=== PATIENT | female | born 1960 | race Caucasian/White ===

== ENCOUNTER 2019-12-26 12:33 | Outpatient (CLI) | payer OTHER, SELFPAY ==
--- NOTE | ~2019-12-26 | DEXA_ITS ---
Bone Density Report Name: Krystal Bowser Age: 59 Sex: Female Ethnicity: White Date of : 1960 Indication: postmenopausal; parental hip fracture; prior fracture; Referring Provider: Russell Flowers Study: Bone densitometry was performed. Exam Date: December 26, 2019 Accession number: [id number] Bone Density: Region BMD T-score Z-score Classification AP Spine (L1-L4) 0.983 -0.6 0.7 Normal Femoral Neck (Left) 0.652 -1.8 -0.6 Osteopenia Total Hip (Left) 0.872 -0.6 0.2 Normal Total Hip Bilateral Avg 0.865 -0.7 0.2 Normal Femoral Neck (Right) 0.656 -1.7 -0.6 Osteopenia Total Hip (Right) 0.857 -0.7 0.1 Normal World Health Organization criteria for BMD impression classify patients as: Normal (T-score at or above -1.0), Osteopenia (T-score between -1.0 and -2.5), or Osteoporosis (T-score at or below -2.5). 10-year Fracture Risk(1): Major Osteoporotic Fracture 23% Hip Fracture 2.5% Reported Risk Factors: [place] (), Neck BMD=0.656, BMI=20.8, previous fracture, parental fracture, smoking (1) FRAX(R) Version 3.08. Fracture probability calculated for an untreated patient. Fracture probability may be lower if the patient has received treatment. Clinical Information Provided by Patient: Has had a low trauma fracture Parent has had a hip fracture Smokes Has used the following medications: Vitamin D, Calcium Menopause Age: 49 Drinks caffeinated beverages Onset of menses at age 20 Number of children 0 Impression: The patient has low bone mass, based on the Left Femoral Neck T-score. The patient has an estimated ten-year risk of hip fracture of 2.5% and an estimated ten-year risk of major fracture of 23%, based on the WHO FRAX algorithm. The patient has risk factors, including: parental hip fracture, smoking, previous fracture. Discussion: BONE DENSITY IS LOW AT ONE OR MORE SKELETAL SITES. THE PATIENT'S BMD AND CLINICAL RISK FACTORS CONTRIBUTE TO THIS PATIENT'S INCREASED RISK OF FRACTURE. This patient's lowest T-score is low at one or more skeletal sites. It meets the World Health Organization's (WHO) criteria for ?low bone mass? (T-score between -1.0 and -2.5). The patient's 10-year risk of a major osteoporotic fracture as calculated by FRAX exceeds the threshold where pharmacological therapy is recommended by the National Osteoporosis Foundation (NOF). However, all treatment decisions require clinical judgment and consideration of individual patient factors, including patient preferences, comorbidities, previous drug use, risk factors not captured in the FRAX model (e.g., frailty, falls, vitamin D deficiency, increased bone turnover, interval significant decline in bone density) and possible under or overestimation of fracture risk by FRAX. The patient should follow a healthful lifestyle (good nu
== END 2019-12-26 12:34 | disposition home or self-care (01) ==
LOC: ANHIMG 12:34
PROVIDERS: PCP Internal Medicine Endocrinology, Diabetes & Metabolism; Visit Provider Obstetrics & Gynecology
DX: M84.40XA Pathological fracture, unspecified site, initial encounter for fracture (principal); M85.89 Other specified disorders of bone density and structure, multiple sites
CPT/HCPCS: 77080

== ENCOUNTER 2022-01-22 09:48 | Outpatient (CLI) | payer OTHER, SELFPAY ==
--- NOTE | ~2022-01-22 | MM_ITS ---
EXAMINATION: MM screening frederic BI w chepe HISTORY: Screening TECHNIQUE: Craniocaudal and mediolateral oblique 3-D tomosynthesis images were obtained and synthetic 2-D images were generated. CAD analysis was submitted and interpreted. COMPARISON: Comparison to multiple prior studies sequentially, with oldest reviewed study dated 08/2012. BREAST PARENCHYMAL COMPOSITION: The breasts are heterogeneously dense, which may obscure small masses FINDINGS: There is no evidence of suspicious mass, calcification, or architectural distortion to sugg est malignancy in either breast. There has been no suspicious interval change. IMPRESSION: 1. No mammographic evidence of malignancy. 2. Recommend routine screening mammography in one year. BI-RADS Category 1: Negative Reviewed, dictated and finalized at location A.
== END 2022-01-22 09:49 | disposition home or self-care (01) ==
PROVIDERS: PCP Nurse Practitioner Family; Visit Provider Nurse Practitioner Family
DX: Z12.31 Encounter for screening mammogram for malignant neoplasm of breast (principal)
CPT/HCPCS: 77063; 77067

== ENCOUNTER 2024-01-12 09:41 | Outpatient (CLI) | payer OTHER, SELFPAY ==
--- NOTE | ~2024-01-12 | MM_ITS ---
EXAMINATION: MM screening frederic BI w chepe HISTORY: Screening TECHNIQUE: Craniocaudal and mediolateral oblique 3-D tomosynthesis images were obtained and synthetic 2-D images were generated. CAD analysis was submitted and interpreted. COMPARISON: Comparison to multiple prior studies sequentially, with oldest reviewed study dated 10/22. BREAST PARENCHYMAL COMPOSITION: Dense: The breasts are heterogeneously dense, which may obscure small masses FINDINGS: There is no evidence of suspicious mass, calcification, or architectural distortion to sugg est malignancy in either breast. There has been no suspicious interval change. IMPRESSION: 1. No mammographic evidence of malignancy. 2. Recommend routine screening mammography in one year. BI-RADS Category 1: Negative Reviewed, dictated and finalized at location B.
== END 2024-01-12 09:42 | disposition home or self-care (01) ==
LOC: ANHIMG 09:45
PROVIDERS: Visit Provider Obstetrics & Gynecology
DX: Z12.31 Encounter for screening mammogram for malignant neoplasm of breast (principal)
CPT/HCPCS: 77063; 77067

== ENCOUNTER 2025-03-29 12:28 | Outpatient (CLI) | payer OTHER, SELFPAY ==
--- NOTE | ~2025-03-29 | MM_ITS ---
EXAMINATION: MM screening frederic BI w chepe HISTORY: Screening TECHNIQUE: Craniocaudal and mediolateral oblique 3-D tomosynthesis images were obtained and synthetic 2-D images were generated. CAD analysis was submitted and interpreted. COMPARISON: Comparison to multiple prior studies sequentially, with oldest reviewed study dated 02/18/2016. BREAST PARENCHYMAL COMPOSITION: Dense: The breasts are heterogeneously dense, which may obscure small masses. FINDINGS: There is no evidence of suspicious mass, calcification, or architectural distortion to suggest malignancy in either breast. Scattered benign-appearing calcifications are present. IMPRESSION: 1. No mammographic evidence of malignancy. 2. Recommend routine screening mammography in one year. BI-RADS Category 2: Benign finding(s). Reviewed, dictated and finalized at location A. MANAGER
--- OUTSIDE RECORDS SUMMARY | 2025-03-29 13:25 | XMS_ITS | Encounter Summary ---
Author Organization [facility] Address [address] [place] [address] Care Team Providers Care House Admin Name Role Phone Peter Kirby MD Primary Care Provider + Encounter Details Date Type Department Care Team (Latest Contact Info) Description 03/01/2025 Results Follow-Up [facility] [address] [phone] Peter Kirby MD [address] [address] CBC with auto differential, Comprehensive metabolic panel, T4, free, Additional followed-up results: 2 Social History Tobacco Use Types Packs/Day Years Used Date Smoking Tobacco: Some Days Cigarettes Smokeless Tobacco: Never Alcohol Use Standard Drinks/Week Comments Yes 0 (1 standard drink = 0.6 oz pur e alcohol) PHQ-2 Answer Date Recorded PHQ-2 Total Score (If total score is 3 or more points, staff should administer the PHQ-9) 0 12/19/2023 Personal Safety Answer Date Recorded Have you ever been in or are you currently in a harmful physical or emotional relationship or is someone making you feel afraid or unsafe? 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
--- OUTSIDE RECORDS SUMMARY | 2025-03-29 13:25 | XMS_ITS | Clinical Summary ---
Author Organization [facility] Address [address] [place] [phone] Care Team Providers Care Ict Educator Name Role Phone Peter Kirby MD Primary Care Provider + Allergies No known active allergies Medications nitroglycerin (NITROSTAT) 0.[address] 1 tablet (0.4 mg total) under the tongue every 5 (five) minutes as needed for chest pain May repeat dose q 5 min, up to 3 doses total 90 tablet 1 09/09/19 24 Active diltiaZEM CD (CARDIZEM CD) 360 mg 24 hr capsule Take 1 capsule (360 mg total) by mouth daily 90 capsule 3 09/23/19 25 Active rosuvastatin (CRESTOR) 10 mg tablet TAKE 1 TABLET(10 MG) BY MOUTH DAILY 90 tablet 3 01/15/20 25 Active multivitamin tabletIndicati ons:Vitamin Deficiency Prevention Take 1 tablet by mouth Active cholecalcifero l (VITAMIN D-3) 5,000 unit tablet 1 tablet (5,000 Units total) daily Active nitrofurantoin monohydrate (MACROBID) 100 mg capsule TAKE 1 CAPSULE DAILY PREVENTATIVE 90 capsule 3 03/28/20 25 Active varenicline tartrate (CHANTIX JOSHUA) 0.5 mg (11)- 1 mg (42) tablet Use as directed on package instructions, try to quit smoking after 1 week. 53 tablet 12/20/19 24 2024 Discontinued(P atient Reported) varenicline tartrate (CHANTIX) 1 mg tabletIndicati ons:Smoking Cessation Take 1 tablet (1 mg total) by mouth 2 (two) times a day Take with full glass of water. 180 tablet 1 12/20/19 24 2024 Discontinued(P atient Reported) nitrofurantoin monohydrate (MACROBID) 100 mg capsule Take one capsule daily as preventative 90 capsule 1 09/23/19 25 2024 Discontinued Active Problems Problem Noted Date Diagnosed Date Dyspnea on exertion 02/24/2023 Dysphagia 10/15/2022 Well adult exam 07/22/2021 Assessment & Plan (07/22/2021 1:59 PM CDT): Labs Due for Tdap, Shingrix Due for mammogram,current on WWE Colonoscopy due 2023 Chest pain 07/22/2021 Assessment & Plan (08/01/2024 12:49 PM CDT): Suspect microvascular dysfunction. Coronary CTA with no evident coronary artery disease, coronary calcium score of 0. Continue increased dose of diltiazem. We have recurrent anginal symptoms, would consider trying ranolazine. Did not tolerate imdur Assessment & Plan (10/20/2023 5:10 PM CDT): Symptoms somewhat consistent with angina without obstructive coronary disease. Will treat her empirically for microvascular dysfunction. She did not tolerate Imdur so will try diltiazem, for which there is more evidence any way. I did recommend she get stop aspirin as her CTA did not show any obstructive disease. Will repeat lipids as her last ones from a year ago showed a total cholesterol of 270. Could consider provocative testing for microvascular disease if her symptoms do not improve with medical therapy. Assessment & Plan (09/09/2023 1:18 PM CDT): What she describes in clinic today is exertional angina. Start imudr 30 mg daily and NTG PRN. Stress ECHO in 2021 negative for ischemia. Risk factors include, HLD and tobacco abuse. Coronary CT. ASA. Dr. Warren or Cheryl in 3 months. Assessment & Plan (07/22/2021 2:27 PM CDT): EKG today-WNL FHx of CAD Exercise stress test Mixed hyperlipidemia 10/03/2020 Overview (10/03/2020): Same meds Assessment & Plan (08/01/2024 12:49 PM CDT): Under reasonable control on statin. Assessment & Plan (09/09/2023 1:18 PM CDT): Statin. Migraine without status migrainosus, not intract able 10/03/2020 Wellness examination 04/30/2020 Migraine-cluster headache syndrome 04/30/2020 DDD (degenerative disc disease), cervical 2018 Skin neoplasm 12/22/2013 Benign neoplastic disease 12/22/2013 Chronic cystitis 03/12/2011 Resolved Problems Problem Noted Date Diagnosed Date Resolved Date Abdominal pain 10/03/2020 07/22/2021 Overview (10/03/2020): Pianis now mainly in LLQ, Will check labs and UA Check CT Neck pain 12/14/2018 07/22/2021 Urinary tract infection 03/12/201107/11 Encounters Date Type Department Care Team Description 03/01/2025 Results Follow-Up [facility] [address] [place] [phone] Peter Kirby MD CBC with auto differential, Comprehensive metabolic panel, T4, free, Additional followed-up results: 2 02/28/2025 1:30 PM COSTUME SEAMSTRESS Office Visit [facility] [address] [place] [address] [place] [phone] Peter Kirby MD Mixed hyperlipidemia (Primary Dx); Vitamin D deficiency, unspecified from Last 3 Months Surgical History Surgery Date Site/Laterality Comments TONSILLECTOMY Tonsillectomy - (Added by DAT Conv) Medical History Medical History Date Comments Hypercholesteremia Migraines GERD (gastroesophageal reflux disease) Dysphagia Family History Medical History Relation Name Comments No Known Problems Father Colon cancer Maternal Grandmother No Known Problems Mother Relation Name Status Comments Father Maternal Grandmother Mother Social History Tobacco Use Types Packs/Day Years Used Date Smoking Tobacco: Some Days Cigarettes Smokeless Tobacco: Never Tobacco Cessation:Ready to Q uit: Not Asked; Counseling Given: Not Answered Alcohol Use Standard Drinks/Week Comments Yes 0 [...] on file 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 Gender Identity Not on file Sexual Orientation Not on file Last Filed Vital Signs Vital Sign Reading Time Taken Comments Blood Pressure 120/74 02/28/2025 1:40 PM COSTUME SEAMSTRESS Pulse 83 02/28/2025 1:40 PM COSTUME SEAMSTRESS Temperature 36.2 C (97.2 F) 08/03/2023 7:47 AM CDT Respiratory Rate 16 08/30/2023 10:31 AM CDT Oxygen Saturation 99% 02/28/2025 1:40 PM COSTUME SEAMSTRESS Inhaled Oxygen Concentration - - Weight 57.7 kg (127 lb 3.2 oz) 02/28/2025 1:40 P M COSTUME SEAMSTRESS Height 165.1 cm (5' 5) 02/28/2025 1:40 PM COSTUME SEAMSTRESS Body Mass Index 21.17 02/28/2025 1:40 PM COSTUME SEAMSTRESS Plan of Treatment Scheduled Procedures Name Priority Associated Diagnoses Date/Ti me ESOPHAGOGASTRODUODENOSCOPY Dyspnea on exertion Health Maintenance Due Date Last Done Comments Breast Cancer Screening-Mammogram 1960 Cervical Cancer Screening 1960 Hepatitis C Screening 1960 DTaP/Tdap/Td Vaccine (1 - Tdap) 1973 Hepatitis B Screening 1980 Pneumococcal vaccine <65 (1 of 2 - PCV) 1981 Zoster Vaccine (1 of 2) 2012 Colon Cancer Screening-Colonoscopy 10/12/2023 10/11/2013 Influenza Vaccine (#1) 2024 12/21/2017, 2014 Depression Screening 12/19/2024 12/20/2023, 10/15/2022, 10/15/2022 Regular Well Visit/Exam 18-64 02/28/2026, 12/20/2023, 10/15/2022, Additional history exists Colon Cancer Screening-CT Colonography Discontinued 10/11/2013 Colon Cancer Screening-Sigmoidoscopy Discontinued 10/11/2013 Colon Cancer Screening-DNA Stool Discontinued 12/20/19 23, 10/11/2013 Colon Cancer Screening-FIT Discontinued 12/19/2022, Procedures Procedure Name Priority Date/Time Associated Diagnosis Comments VITAMIN D 25 HYDROXY Routine 02/28/2025 3:14 PM COSTUME SEAMSTRESS Mixed hyperlipidemia Vitamin D deficiency, unspecified TSH Routine 02/28/2025 3:14 PM COSTUME SEAMSTRESS Mixed hyperlipidemia Vitamin D deficiency, unspecified T4, FREE Routine 02/28/2025 3:14 PM COSTUME SEAMSTRESS Mixed hyperlipidemia Vitamin D deficiency, unspecified COMPREHENSIVE METABOLIC PANEL Routine 02/28/2025 3:14 PM COSTUME SEAMSTRESS Mixed hyperlipidemia Vitamin D deficiency, unspecified CBC WITH AUTO DIFFERENTIAL Routine 02/28/2025 3:14 PM COSTUME SEAMSTRESS Mixed hyperlipidemia Vitamin D deficiency, unspecified POCT GLUCOSE [id number] Routine 02/28/2025 1: 45 PM COSTUME SEAMSTRESS Mixed hyperlipidemia POCT LIPID PANEL Routine 02/28/2025 1:45 PM COSTUME SEAMSTRESS Mixed hyperlipidemia STOOL DNA COLOGUARD Routine 12/19/2022 8:45 AM CDT Colon cancer screening COLONOSCOPY REPORT 10/11/2013 from Last 3 Months or Most Recently Relevant to Health Maintenance Results * CBC with auto differential (02/28/2025 3:14 PM COSTUME SEAMSTRESS) WBC 8.2 3.5 - 10.0 K/uL [facility] RBC 4.00 3.50 - 5.50 M/uL [facility] Hemoglobin 12.9 11.5 - 16.5 g/dL [facility] Hematocrit 37.0 35.0 - 55.0 % [facility] MCV 92.5 75.0 - 100.0 fL [facility] MCH 32.40 25.00 - 35.00 pg [facility] MCHC 35.00 31.00 - 38.00 g/dL [facility] RDW 13.1 11.0 - 16.0 % [facility] Platelets 230 140 - 400 K/uL [facility] MPV 8.4 8.0 - 11.0 fL [facility] Granulocyte, Absolute 4.6 1.2 - 8.0 K/uL [facility] Lymphocyte, Absolute 3.0 0.5 - 5.0 K/uL [facility] Monocyte, Absolute 0.6 0.1 - 1.5 K/uL [facility] Granulocyte, Percentage 55.7 35.0 - 80.0 % [facility] Lymphocyte, Percentage 36.8 15.0 - 50.0 % [facility] Monocyte, Percentage 7.5 2.0 - 15.0 % [facility] Blood 02/28/2025 3:14 PM COSTUME SEAMSTRESS 02/28/2025 3:16 PM COSTUME SEAMSTRESS Peter Kirby MD LAB BLOOD ORDERABLES Fin al Result Performing Organization Address City/[facility]/ZIP Co de Phone Number [facility] [address] [place] [address] * Vitamin D 25 hydroxy (02/28/2025 3:14 PM COSTUME SEAMSTRESS) Pathologist [facility] Vitamin D 80.03 >29.00 ng/ml [facility] Blood 02/28/2025 3:14 PM COSTUME SEAMSTRESS 02/28/2025 3:16 PM COSTUME SEAMSTRESS Peter Kirby MD LAB BLOOD ORDERABLES Fin al Result Performing Organization Address City/[facility]/ZIP Co de Phone Number [address] * TSH (02/28/2025 3:14 PM COSTUME SEAMSTRESS) TSH 1.60 0.27 - 4.20 uIU/mL [facility] Blood 02/28/2025 3:14 PM COSTUME SEAMSTRESS 02/28/2025 3:16 PM COSTUME SEAMSTRESS Peter Kirby MD LAB BLOOD ORDERABLES Fin al Result Performing Organization Address [facility]/ZIP Co de Phone Number [facility] [address] [facility] [address] * T4, free (02/28/2025 3:14 PM COSTUME SEAMSTRESS) Free T4 1.28 0.93 - 1.70 ng/dL [facility] Blood 02/28/2025 3:14 PM COSTUME SEAMSTRESS 02/28/2025 3:16 PM COSTUME SEAMSTRESS Peter Kirby MD LAB BLOOD ORDERABLES Fin al Result Performing Organization Address [facility] de Phone Number [facility] [address] [facility] [address] * (ABNORMAL) Comprehensive metabolic panel (02/28/2025 3:14 PM COSTUME SEAMSTRESS) Glucose 95 74 - 200 mg/dL [facility] BUN 14(L) 18 - 23 mg/dL [facility] Creatinine 0.80 0.70 - 1.30 mg/dL [facility] BUN/Creat Ratio 18 Ratio [facility] Bilirubin, Total 0.3 0.0 - 1.2 mg/dL [facility] AST (SGOT) 20 0 - 32 U/L [facility] ALT (SGPT) 22 10 - 35 U/L [facility] Alkaline phosphatase 56 35 - 104 U/L [facility] Calcium 9.4 8.8 - 10.2 mg/dL [facility] Sodium 137 135 - 145 mEq/L [facility] Potassium 4.0 3.5 - 5.1 mEq/L [facility] Chloride 101 98 - 107 mEq/L [facility] CO2 23.4 22.0 - 32.0 mEq/L [facility] Anion Gap 13(H) 3 - 12 mEq/L [facility] Total Protein 6.9 6.0 - 8.1 g/dL [facility] Albumin 4.6 3.5 - 5.2 g/dL [facility] Globulin 2.3 g/dL [facility] Albumin/Globulin 2.0 Ratio [facility] eGFR 83.05 [facility] Blood 02/28/2025 3:14 PM COSTUME SEAMSTRESS 02/28/2025 3:16 PM COSTUME SEAMSTRESS Peter Kirby MD LAB BLOOD ORDERABLES Fin al Result [facility] [address] [place] [phone] * POCT glucose (02/28/2025 1:45 PM COSTUME SEAMSTRESS) [facility] Glucose Blood, POC 101 Normal Fasting 70 - 100, Random <200 mg/dL Blood 02/28/2025 1:45 PM COSTUME SEAMSTRESS Peter Kirby MD POINT OF CARE TEST ORDER EDGAR Final Result * (ABNORMAL) POCT lipid panel (02/28/2025 1:45 PM COSTUME SEAMSTRESS) [facility] Cholesterol, POC 209 <200 MG/DL HDL, POC 89 >=40 mg/dL Triglycerides, POC 94 <=149 mg/dL LDL Cholesterol POC 101 <=129 mg/dL Chol/HDL Ratio, POC 2.3 NONE Non-HDL Cholesterol, POC 120 NONE mg/dL Cholesterol Total, POC 209(A) 30 - 199 mg/dL Capillary blood 02/28/2025 1 :45 PM COSTUME SEAMSTRESS Peter Kirby MD POINT OF CARE TEST ORDER EDGAR Final Result * Stool DNA - Cologuard (12/19/2022 8:45 AM CDT) [facility] Stool DNA - Cologuard Negative Negative [facility] (CLIA #:[id number]) Comment: NEGATIVE TEST RESULT. A negative Cologuard result indicates a low likelihood that a colorectal cancer (CRC) or advanced adenoma (adenomatous polyps with more advanced pre-malignant features) is present. The chance that a person with a negative Cologuard test has a colorectal cancer is less than 1 in 1500 (negative predictive value >99.9%) or has an advanced adenoma is less than 5.3% (negative predictive value 94.7%). These data are based on a prospective cross-sectional study of 10,000 individuals at average risk for colorectal cancer who were screened with both Cologuard and colonoscopy. (Mark Bledsoe et al, N Engl J Med 2014;370(14):3653-5284) The normal value (reference range) for this assay is negative. COLOGUARD RE-SCREENING RECOMMENDATION: Periodic colorectal cancer screening is an important part of preventive healthcare for asymptomatic individuals at average risk for colorectal cancer. Following a negative Cologuard result, the [place] Cancer Society and U.S. Multi-Society Task Force screening guidelines recommend a Cologuard re-screening interval of 3 years. References: [place] [employer] Society Guideline for Colorectal Cancer Screening: https://www.cancer.org/cancer/syplj-ykwgqq-bldelp/wywnfshvy-jcalpfpgl-exizszw/ac s-rec ommendations.html.; Madi DK, Radha BERRY, Kanwal MotaK, Colorectal Cancer Screening: Recommendations for Physicians and Patients from the U.S. Multi-Society Task Force on Colorectal Cancer Screening , Am J Gastroenterology 2017; 112:8834-2905. TEST DESCRIPTION: Composite algorithmic analysis of stool DNA-biomarkers with hemoglobin immunoassay. Quantitative values of individual biomarkers are not reportable and are not associated with individual biomarker result reference ranges. Cologuard is intended for colorectal cancer screening of adults of either sex, 45 years or older, who are at average-risk for colorectal cancer (CRC). Cologuard has been approved for use by the U.S. FDA. The performance of Cologuard was established in a cross sectional study of average-risk adults aged 50-84. Cologuard performance in patients ages 45 to 49 years was estimated by sub-group analysis of near-age groups. Colonoscopies performed for a positive result may find as the most clinically significant lesion: colorectal cancer [4.0%], advanced adenoma (including sessile serrated polyps greater than or equal to 1cm diameter) [20%] or non- advanced adenoma [31%]; or no colorectal neoplasia [45%]. These estimates are derived from a prospective cross-sectional screening study of 10,000 individuals at average risk for colorectal cancer who were screened with both Cologuard and colonoscopy. (Mark Mendenhall al, N Engl J Med 2014;370(14):3475-7720.) Cologuard may produce a false negative or false positive result (no colorectal cancer or precancerous polyp present at colonoscopy follow up). A negative Cologuard test result does not guarantee the absence of CRC or advanced adenoma (pre-cancer). The current Cologuard screening interval is every 3 years. ([place] [employer] and U.S. Multi-Society Task Force). Cologuard performance data in a 10,000 patient pivotal study using colonoscopy as the reference method can be accessed at the following location: www.[employer].[place]/results. Additional description of the Cologuard test process, warnings and precautions can be found at www.[employer].com. Stool 12/19/2022 8:45 AM CDT 12/21/2022 3:03 AM CDT Peter Kirby MD LAB BODY FLUIDS AND STOO LS ORDERABLES Final Result [facility] [employer] [facility] (CLIA #:[id number]) [address] [place] [address] * COLONOSCOPY REPORT (10/11/2013) Anatomical Region Laterality Modality Other Narrative 10/11/2013 Ordered by an unspecified provider. Historical Provider GI PROCEDURE ORDERABLES F inal Result from Last 3 Months or Most Recently Relevant to Health Maintenance Insurance [facility] [address] [place] [phone] [facility] [place] [address] [place] [address] [facility] [place] [address] [facility] Care Teams Ict Educator Relationship Specialty Start Date End Date Peter Kirby MD PCP - General Endocrinology Diabetes & Metabolism 03/26/20
== END 2025-03-29 12:29 | disposition home or self-care (01) ==
LOC: CHSIMG 12:32
PROVIDERS: Visit Provider Obstetrics & Gynecology
DX: Z12.31 Encounter for screening mammogram for malignant neoplasm of breast (principal)
CPT/HCPCS: 77063; 77067